=== PATIENT | male | born 1950 | race Caucasian/White ===

== ENCOUNTER 2017-09-15 07:31 | Day surgery (SDC) | payer OTHER ==
[~2017-09-15] VITALS: Ht 175.3 cm; Wt 89.4 kg
[~2017-09-15 07:31] MED LIST: ASPIR-LOW81 MG PO; FLOMAX0.4 MG PO; LIPITOR40 MG PO; LISINOPRIL5 MG PO; METOPROLOL SUCC50 MG PO; OMEPRAZOLE20 MG PO
--- NOTE | 2017-09-15 09:25 | NUR ---
09/15/17 0925 Rosetta Urena 0915 PATIENT ARRIVES TO PACU AWAKE AND TALKING, DENIES PAIN OR NAUSEA. RESP EVEN AND UNLABORED, NC AT 3 LITERS. 0920 PATIENT SLEEPING WITH SNORING RESP, NC AT 3 LITERS. PATIENT AWAKENS TO VERBAL STIMULI, FOLLOWS COMMANDS, THEN BACK TO SLEEP.
--- NOTE | 2017-09-20 08:07 | OR ---
[facility] [address], [place] [address] Signed DATE OF OPERATION: 09/15/2017 SURGEON: Doris Valentin MD PREOPERATIVE DIAGNOSES: 1. Gastroesophageal reflux disease. 2. Bloating. POSTOPERATIVE DIAGNOSES: 1. Small type 1 hiatal hernia. 2. Mild diffuse gastritis. PROCEDURES: EGD with CLOtest and biopsies of the antrum. ESTIMATED BLOOD LOSS: None. INDICATIONS: Rozina is a 67-year-old gentleman, asked to see me for upper endoscopy. He has had acid reflux and bloating. He switched from omeprazole down to Zantac and his symptoms were miserable. He went back on omeprazole and said it is much better. He said he worries because his dad of some type of abdominal bloating associated with Hodgkin's lymphoma. In the office, I gave him a pamphlet on upper endoscopy. We looked at that together. He understands the nature of that test along with the risks including, but not limited to gas bloating, crampy abdominal pain, bleeding, perforation, requiring surgery, and missed diagnosis. He also understands the need for IV conscious sedation. He expressed understanding and wished to proceed. PROCEDURE NOTE: Rozina was taken into our endoscopy suite and placed in the supine semi-recumbent position. He was given IV sedation with 5 mg of Versed and 100 mcg of fentanyl. The posterior oropharynx was anesthetized with Hurricaine spray. A bite block was utilized for the case. The adult gastroscope was introduced and advanced all the way out into the third portion of the duodenum under direct visualization of camera without difficulty. The duodenum and pyloric channel were unremarkable. The stomach showed some mild diffuse erythematous changes. We took a biopsy of the antrum for CLOtest as well as pathologic review. Upon retroflexion of the scope, he has just a small hiatal hernia. No gastric or esophageal varices. The scope was withdrawn up through the area of GE junction, which was compliant without stricture. Very minimal disruption to his Electronically Signed By: DORIS VALENTIN MD 09/20/17 0807 PATIENT NAME: ROZINA BELTRAN OPERATIVE REPORT DATE OF : 46 PHYSICIAN: DORIS VALENTIN MD REPORT #: [id number] REPORT IS CONFIDENTIAL AND NOT TO BE RELEASED WITHOUT AUTHORIZATION [facility] [address] [place] [id number] Signed Z-line. No Blum's mucosa. No distal esophagitis. His middle and upper esophagus were unremarkable. After this, the gas was suctioned out and the gastroscope removed. Rozina tolerated the procedure quite well. RECOMMENDATIONS: Rozina will follow up my office in 7 to 14 days to review his result. MD PURVI Sim/DAVIEL /[id number] cc: Doris Valentin MD [place], [place] Electronically Signed By: DORIS VALENTIN MD 09/20/17 0807 PATIENT NAME: ROZINA BELTRAN OPERATIVE REPORT DATE OF : 46 PHYSICIAN: DORIS VALENTIN MD REPORT #: [id number] REPORT IS CONFIDENTIAL AND NOT TO BE RELEASED WITHOUT AUTHORIZATION
== END 2017-09-15 09:55 | disposition home or self-care (01) ==
LOC: OPS 07:31 → DS 07:31 → OPS 09:00 → DS 09:00 → OPS 09:55
PROVIDERS: Colon & Rectal Surgery
PROC: 0DB78ZZ Excision of Stomach, Pylorus, Via Natural or Artificial Opening Endoscopic (ICD-10-PCS; principal; 2017-09-15 09:00)
DX: K29.50 Unspecified chronic gastritis without bleeding (principal); K44.9 Diaphragmatic hernia without obstruction or gangrene; I25.10 Atherosclerotic heart disease of native coronary artery without angina pectoris; I10 Essential (primary) hypertension; K63.5 Polyp of colon; K57.30 Diverticulosis of large intestine without perforation or abscess without bleeding; L57.0 Actinic keratosis; M19.90 Unspecified osteoarthritis, unspecified site; Z85.828 Personal history of other malignant neoplasm of skin; Z98.890 Other specified postprocedural states; Z79.82 Long term (current) use of aspirin; Z79.899 Other long term (current) drug therapy
CPT/HCPCS: 86677; 88305; 88342; 99153; G0500; J2250; J3010; J7120